=== PATIENT | male | born 1995 | race Caucasian/White ===

== ENCOUNTER 2023-11-03 03:14 | Emergency (ER) | payer MEDICAID ==
[~2023-11-03] VITALS: Ht 165.1 cm; Wt 63.5 kg
--- NOTE | 2023-11-03 03:32 | NUR ---
BIBFRIEND FROM [place] C/O GLF & HITTING HEAD ON FLOOR. -LOC, -LAC -PAIN ETOH. PT A/OX4. TOLERATING R/A WELL WITH NO RESP DISTRESS. SAFETY MEASURES IN PLACE.
[2023-11-03 04:36] VITALS: BP 112/66; TEMP 98.7; O2SAT 97
== END 2023-11-03 04:36 | disposition home or self-care (01) ==
LOC: ER 03:17
DX: S09.8XXA Other specified injuries of head, initial encounter (principal); F10.129 Alcohol abuse with intoxication, unspecified; W18.39XA Other fall on same level, initial encounter; Y93.89 Activity, other specified; Y92.89 Other specified places as the place of occurrence of the external cause; Y99.8 Other external cause status
CPT/HCPCS: 70450-TC; 72125-TC